=== PATIENT | male | born 1965 | race Caucasian/White ===

== ENCOUNTER → 2020-06-08 15:14 | Outpatient (CLI) | payer OTHER, SELFPAY ==
[2020-06-08 17:35] LABS: COVID19 -Nasal RAPID Negative (Negative)
== END ==
PROVIDERS: Family Provider Family Medicine; PCP Family Medicine; Visit Provider Physician Assistant
DX: Z11.59 Encounter for screening for other viral diseases (principal)
CPT/HCPCS: 87635

== ENCOUNTER 2020-06-10 09:18 | Day surgery (SDC) | payer OTHER, SELFPAY ==
[2020-06-10] VITALS (7 sets, daily range): BP systolic 121–157; BP diastolic 65–95; PULSE 71–88; RESP 11–18; TEMP 36.1–36.8; O2SAT 93–99; BMI 31.1
--- NOTE | 2020-06-10 | PATH_ITS ---
[facility] Accession Number: [id number] . 01 Material submitted: . colon - SPLENIC COLON POLYP . 02 Diagnosis: Splenic Flexure, Polyp: Hyperplastic polyp. MRV 06/12/2020 1053 Local . 02 Electronically signed: . Wilmar Blank MD, PhD, Pathologist NPI- [id number] . 01 Gross description: . SPLENIC COLON POLYP: Received in formalin is 1 fragment(s) of webb, soft tissue measuring 0.5 x 0.4 x 0.1 cm submitted entirely in 1 cassette(s) /QBJ 06/11/2020 0717 Local . 02 Pathologist provided ICD-10: K63.5 . 02 CPT . 206199 Performed at: 01 [facility] [address] [facility], [place], [place] [id number] MD Merlin Fontanez MD Phone: [phone] Performed at: 02 [facility] [address] [place], [place] [id number] MD Jenny Clay MD Phone: [phone]
[2020-06-10] MEDS: SODIUM CHLORIDE 0.9% 1,000 ML 21 ML IV (09:37)
--- NOTE | 2020-06-10 09:53 | PM.HP.1 ---
History of Present Illness History of Present Illness Date Patient Seen: 06/10/20 Chief complaint: SDC Narrative: Screening for colorectal cancer. First colonoscopy Patient History Medical History (Updated 06/10/20 @ 09:34 by Jenny Smith RN) Hypertension Family & Social History Family History (Updated 09/15/16 @ 00:00 by Conversion Provider) Father Age: 77 Hypertension Mother Age: 77 Hypertension Social History: household members spouse,children Tobacco & Substance use: Smoking Status Never smoker alcohol intake current alcohol intake frequency a few times a week Substance Use Type does not use Meds Home Medications and Allergies Home Medications Medication Instructions Recorded Confirmed Type lisinopril 10 mg tablet 10 mg PO BID #180 tab 11/05/18 06/10/20 Rx Exam Vital Signs (past 8 hours): - 06/10/20 09:38 Temperature 98 F Pulse Rate 88 Respiratory Rate 16 Blood Pressure 157/95 H Pulse Oximetry 99 Oxygen Delivery Method Room Air Narrative Exam Narrative: Oropharynx free of lesions Chest clear to auscultation percussion Cardiac exam reveals no S3 or murmur Assessment & Plan Assessment & Plan narrative: Colorectal cancer screening. Need for colonoscopy. Risks, benefits, alternatives have been explained.
--- NOTE | 2020-06-10 09:54 | PM.OP.ENDO ---
Operative Date/Time/Diagnoses Date of procedure: 06/10/20 Pre-op diagnosis: See indication and findings Procedure & Clinicians Study performed: Colonoscopy Same procedure as scheduled: Yes Indications: First screening for colorectal cancer Surgeon: Josh Young Procedure Notes Procedure in detail: After informed consent was obtained the patient was placed in left lateral decubitus position. The video colonoscope was introduced the rectum slowly advanced cecum. On slow withdrawal mucosa was carefully examined. Preparation was good. Scope was removed. The patient tolerated procedure well. Blood loss none Complications none Sedation Total sedation time 20 minutes Versed 7 mg fentanyl 200 micro g IV titration Findings 1. 8 mm sessile polyp at splenic flexure cold snared and removed completely. 2. Extensive sigmoid diverticulosis 3. Otherwise negative colonoscopy to cecum Will go over pathology results and most likely he will need follow-up colonoscopy in 7 years
[2020-06-10] MEDS: fentaNYL 250 MCG/5 ML INJ IV (10:32)
[2020-06-10] MEDS: MIDAZOLAM 5 MG/5 ML VIAL IV (10:34)
--- NOTE | 2020-06-10 12:58 | SUR.PHASEII ---
pt arrived into phase II with no issues, tolerated juice without issue. IV removed and pt getting dressed when he stated he got dizzy and diaphoretic. VS taken, BP slightly elevated per pt but no other issues. Pt allowed to stay in bed and rest until he felt comfortable. VS checked again and pt states BP improved to closer to his baseline. Pt denies any additional dizziness or light headededness. up to w/c from bed without issue. to car with RN escort in w/c.
== END 2020-06-10 11:43 | disposition home or self-care (01) ==
PROVIDERS: Family Provider Family Medicine; PCP Physician Assistant Medical; Referring Provider Internal Medicine Gastroenterology; Visit Provider Internal Medicine Gastroenterology
PROC: 0DJD8ZZ Inspection of Lower Intestinal Tract, Via Natural or Artificial Opening Endoscopic (ICD-10-PCS; CPT 45378; principal; 2020-06-10 10:30)
DX: Z12.11 Encounter for screening for malignant neoplasm of colon (principal); I10 Essential (primary) hypertension; K57.30 Diverticulosis of large intestine without perforation or abscess without bleeding; K63.5 Polyp of colon
CPT/HCPCS: 45385; J2250; J3010